=== PATIENT | female | born 1975 | race Caucasian/White ===

== ENCOUNTER 2021-06-12 17:33 | Emergency (ER) | payer OTHER ==
[~2021-06-12] VITALS: Ht 165.1 cm; Wt 99.8 kg
[2021-06-12] MEDS ORDERED: LEVO-T25 MCG PO (18:22)
[2021-06-12] MEDS ORDERED: SIMVASTATIN5 MG PO (18:22)
[2021-06-12] MEDS ORDERED: ABILIFY10 MG PO (18:23)
[2021-06-12 20:50] VITALS: BP 139/70
== END 2021-06-12 20:50 | disposition left against medical advice (07) ==
LOC: M.ERS 17:33
DX: M79.672 Pain in left foot (principal); Z53.21 Procedure and treatment not carried out due to patient leaving prior to being seen by health care provider